=== PATIENT | male | born 1950 | race Caucasian/White ===

== ENCOUNTER 2018-09-27 16:37 | Emergency (ER) | payer OTHER ==
--- NOTE | 2018-09-27 18:49 | ER Document Report ---
ED Medical Screen (RME) - General Chief Complaint: Leg Pain Stated Complaint: LEG PAIN Time Seen by Provider: 09/27/18 18:22 Notes: Patient is a 68-year-old male that presents to the emergency department for chief complaint of left leg swelling. Patient reports he recently had a trip where he drove 18 hours from [place] to here, and yesterday noticed swelling in his left leg, and had some pain behind the knee. No history of DVT in the p ast. ROS: Other than noted above, the 12 point review of systems was reviewed with the patient and were negative, all pertinent findings are included in the HPI. PHYSICAL EXAMINATION: Vital signs reviewed. GENERAL: Well-appearing, well-nourished and in no acute distress. HEAD: Atraumatic, normocephalic. EYES: Pupils equal round extraocular movements intact, conjunctiva are normal. ENT: Nares patent NECK: Normal range of motion CV: Heart regular rate and rhythm LUNGS: No respiratory distress Musculoskeletal: Normal range of motion, mild left lower extremity edema NEUROLOGICAL: Normal speech PSYCH: Normal mood, normal affect. MDM: Patient seen and examined for rapid initial assessment. Vital signs reviewed. A comprehensive ED assessment and evaluation of the patient, analysis of test results and completion of the medical decision making process will be conducted by additional ED providers. *Note is created using voice recognition software and may contain spelling, synt ax or grammatical errors. TRAVEL OUTSIDE OF THE [place] IN LAST 30 DAYS: No - Related Data Allergies/Adverse Reactions: No Known Allergies Allergy (Unverified 09/27/18 17:12) Past Medical History - Social History Chew tobacco use (# tins/day): No Frequency of alcohol use: None Drug Abuse: None Renal/ Medical History: Denies: Hx Peritoneal Dialysis Physical Exam - Vital signs Vitals: Temp Pulse Resp BP Pulse Ox 98.6 F 79 18 140/68 H 95 09/27/18 17:19 09/27/18 17:19 09/27/18 17:19 09/27/18 17:19 09/27/18 17:19 Course - Vital Signs Vital signs: Temp Pulse Resp BP Pulse Ox 98.6 F 79 18 140/68 H 95 09/27/18 17:19 09/27/18 17:19 09/27/18 17:19 09/27/18 17:19 09/27/18 17:19
[2018-09-27] MEDS ORDERED: RIVAROXABAN 15 MG TABLET PO ONE ×2 (20:49→20:50)
--- NOTE | 2018-09-27 20:53 | ER Document Report ---
ED General - General Chief Complaint: Leg Pain Stated Complaint: LEG PAIN Time Seen by Provider: 09/27/18 18:22 Notes: Patient is a 68-year-old male without chronic medical problems presents due to concerns of swelling and pain of his left lower distal lower extremity. Symptoms started 24 hours ago, have been ongoing since that time. Describes it as a mild, throbbing, constant pain just above the level of the knee and behind the knee. Walking seems to worsen the pain. Nothing improves the pain. No history of similar symptoms in the past. He is visiting from [place], did drive from [place] to this area several days ago. Denies any history of DVT or pulmonary emboli. Has been unable to see his primary doctor due to being from out of town. Has never been on anticoagulation in the past. Denies any trauma to the area. No history of surgeries to the area. TRAVEL OUTSIDE OF THE [place] IN LAST 30 DAYS: No - Related Data Allergies/Adverse Reactions: No Known Allergies Allergy (Unverified 09/27/18 17:12) Past Medical History - General Information source: Patient - Social History Smoking Status: Never Smoker Chew tobacco use (# tins/day): No Frequency of alcohol use: None Drug Abuse: None Lives with: Spouse/Significant other Family History: Reviewed & Not Pertinent Patient has suicidal ideation: No Patient has homicidal ideation: No Renal/ Medical History: Denies: Hx Peritoneal Dialysis Review of Systems - Review of Systems Notes: Constitutional: Negative for fever. HENT: Negative for sore throat. Eyes: Negative for visual changes. Cardiovascular: Negative for chest pain. Respiratory: Negative for shortness of breath. Gastrointestinal: Negative for abdominal pain, vomiting or diarrhea. Genitourinary: Negative for dysuria. Musculoskeletal: Positive for left knee, calf pain. Skin: Negative for rash. Neurological: Negative for headaches, weakness or numbness. 10 point ROS negative except as marked above and in HPI. Physical Exam - Vital signs Vitals: Temp Pulse Resp BP Pulse Ox 98.6 F 79 18 140/68 H 95 09/27/18 17:19 09/27/18 17:19 09/27/18 17:19 09/27/18 17:19 09/27/18 17:19 Interpretation: Normal Notes: PHYSICAL EXAMINATION: GENERAL: Well-appearing, well-nourished and in no acute distress. HEAD: Atraumatic, normocephalic. EYES: Pupils equal round and reactive to light, extraocular movements intact, sclera anicteric, conjunctiva are normal. ENT: nares patent, oropharynx clear without exudates. Moist mucous membranes. NECK: Normal range of motion, supple without lymphadenopathy LUNGS: Breath sounds clear to auscultation bilaterally and equal. No wheezes rales or rhonchi. HEART: Regular rate and rhythm without murmurs, 2+ DP pulses bilaterally ABDOMEN: Soft, nontender, normoactive bowel sounds. No guarding, no rebound. No masses appreciated. EXTREMITIES: Normal range of motion, mild edema of the left calf. Pain on palpation of the popliteal fossa on the left. Extremity examination otherwise globally unremarkable. NEUROLOGICAL: No focal neurological deficits. Moves all extremities sp ontaneously and on command. PSYCH: Normal mood, normal affect. SKIN: Warm, Dry, normal turgor, no rashes or lesions noted. Course - Re-evaluation Re-evalutation: 09/27/18 20:52 Patient presents with a DVT to his left lower externally found on ultrasound from the distal femoral to the palpable vein. 2+ DP pulses bilaterally. No significant engorgement. Vitals and exam otherwise unremarkable. No history to suggest acute pulmonary embolus. Patient has been started on Xarelto. At this time will discharge with return precautions and follow-up recommendations. Verbal discharge instructions given a the bedside and opportunity for questions given. Medication warnings reviewed. Patient is in agreement with this plan and has verbalized understanding of return precautions and the need for primary care follow-up in the next 24-72 hours. - Vital Signs Vital signs: Temp Pulse Resp BP Pulse Ox 98.6 F 79 12 128/82 H 94 09/27/18 17:19 09/27/18 17:19 09/27/18 21:01 09/27/18 21:01 09/27/18 21:01 - Diagnostic Test Radiology reviewed: Reports reviewed Discharge - Discharge Clinical Impression: Left leg DVT Qualifiers: Affected thrombotic vein of extremity: popliteal Chronicity: acute Qualified Code(s): I82.432 - Acute embolism and thrombosis of left popliteal vein Condition: Good Disposition: HOME, SELF-CARE Additional Instructions: You have a blood clot in your left leg. You are being started on a blood thinner called rivaroxaban. Your first dose has been given here in the emergency department tonight. For the first 21 days you will take 15 mg twice daily. After the first 21 days, your will proceed to take 20 mg daily until therapy is discontinued. You can take Tylenol 1000 mg every 6 hours as needed for pain. Please avoid NSAIDs such as ibuprofen or naproxen. Wear compression stockings which have been placed here in the emergency department. You may take these off 12 hours daily. Return to the emergency room if you develop shortness of breath, increasing pain your leg, pass out, develop chest pain, have fever of greater than 100.4 F, or have any other symptoms that are worrisome to you. Prescriptions: Rivaroxaban [Xarelto 15 mg Tablet] 15 mg PO BID 21 Days tablet Rivaroxaban [Xarelto 15 mg Tablet] 15 mg PO BID #4 tablet
[2018-09-27 21:18] VITALS: BP 128/82
--- NOTE | 2018-09-28 07:16 | RADIOLOGY REPORT (SQ) ---
CLINICAL HISTORY: pain and unilateral swelling right leg COMPARISON: None. TECHNIQUE: US EXTREMITY VEINS UNILATERAL on 09/27/2018 6:29 PM CDT FINDINGS: The right common femoral vein is patent. The left common femoral and mid and proximal femoral veins are normally compressible with patent flow and augmentation. There is echogenic thrombus in the distal left femoral vein as well as in the popliteal vein. The calf veins are patent. IMPRESSION: Echogenic thrombus in the left popliteal and distal femoral veins, likely chronic.
== END 2018-09-27 21:30 | disposition home or self-care (01) ==
LOC: ER 16:37
DX: I82.432 Acute embolism and thrombosis of left popliteal vein (principal); M79.662 Pain in left lower leg
CPT/HCPCS: 93971; 99283